=== PATIENT | male | born 1990 | race Two or more races ===

== ENCOUNTER 2020-12-26 13:56 | Outpatient (CLI) | payer OTHER | END 2020-12-26 16:22 | disposition home or self-care (01) | LOC: LAB 13:56 | PROVIDERS: ATTEND Obstetrics & Gynecology | DX: Z20.828 Contact with and (suspected) exposure to other viral communicable diseases (principal); Z20.818 Contact with and (suspected) exposure to other bacterial communicable diseases ==

== ENCOUNTER 2021-07-09 11:04 | Emergency (ER) | payer OTHER ==
[~2021-07-09] VITALS: Ht 177.8 cm; Wt 83.0 kg
== END 2021-07-09 17:19 | disposition home or self-care (01) ==
LOC: ER 11:04
DX: K52.9 Noninfective gastroenteritis and colitis, unspecified (principal); R10.84 Generalized abdominal pain